=== PATIENT | male | born 1980 | race Hispanic/Latino ===

== ENCOUNTER 2024-10-31 20:40 | Emergency (ER) | payer OTHER ==
[~2024-10-31] VITALS: Ht 172.7 cm; Wt 102.1 kg
[2024-10-31] MEDS: acetaMINOPHEN 500 MG TABLET PO ONE (21:00)
--- NOTE | 2024-10-31 21:02 | ERN ---
General Chief Complaint: Hypertension Stated Complaint: HTN, HEADACHE Time Seen by MD: 20:43 Source: patient, family History of Present Illness Initial Comments Patient is a 44-year-old male coming in to be evaluated for headache. Per patient he has been under lot of stress notices his blood pressure goes up in the evenings. He states that before he goes to lay down she checked his blood pressure notices it high. He states that he was evaluated by his primary care physician was advised a CT of the head due to his abnormal presentation. He states that during the evaluation by primary care physician was very anxious. Allergies: Coded Allergies: No Known Allergies (Unverified Allergy, Unknown, 10/31/24) Past Medical History Past Medical History: Hypertension Past Surgical History: None ROS Dictation CONSTITUTIONAL: No chills, no fever, no weakness, no diaphoresis, no malaise. HEAD/FACE: No signs of trauma. EENT: No eye pain, no blurred vision, no tearing, no double vision, no ear pain, no ear discharge, no nose pain, no nasal congestion, no throat pain, no throat swelling, no mouth pain. RESPIRATORY: No cough, no orthopnea, no SOB, no stridor, no wheezing. CARDIOVASCULAR: No chest pain, no edema, no palpitations, no syncope. GASTROINTESTINAL/ABDOMINAL: No abdominal pain, no constipation, no diarrhea, no nausea, no vomiting. GENITOURINARY: No abnormal discharge, no dysuria, no frequent urination, no hematuria. No complaints of pain in the genitals. MUSCULOSKELETAL: No back pain, no gout, no joint pain, no joint swelling, no muscle pain, no muscle stiffness, no neck pain. INTEGUMENTARY: No change in color, no change in hair/nails, no dryness, no lesion, no lumps, no rash. NEUROLOGICAL/PSYCH: No anxiety, not depressed, no emotional problem, no heada eduardo, no numbness, no pre-existing deficit, no history of seizures, no tremors, no weakness. HEMATOLOGIC/LYMPHATIC: Not anemic, no history of blood clots, no apparent bleeding, no bruising, glands not swollen. All Systems Negative, Except as Noted. Physical Exam Physical Exam Dictation VITAL SIGNS: Reviewed. GENERAL APPEARANCE: Alert, oriented x3, no acute distress, obese. HEAD AND FACE: Non-traumatic. EYES: PERRL, pink conjunctivas, eyelid no trauma, anterior chamber clear. EARS: Pinnas intact and no signs of trauma or erythema. Ear canals clear and no discharge. TMs no erythema. NOSE: No discharge, no bleeding. OROPHARYNX: Mouth normal, teeth no caries, tongue pink. Pharynx clear, no erythema. Tonsils no exudates, no abscesses noted. Mucous membrane moist. NECK: Supple, non-tender, no thyromegaly, no masses, no JVD, no bruits. BREAST: Deferred. CHEST: No tenderness, no crepitus, no paradoxical movement, no retractions. LUNGS: Clear, well-ventilated, symmetric, no rales, no wheezing, no rhonchi, no stridor, good breath sounds bilaterally. HEART: Regular rate, regular rhythm, no murmur, no gallops. VASCULAR: No peripheral edema. ABDOMEN: Soft, positive bowel sounds, nondistended, no guarding, nontender, no rebound, no masses no hepatomegaly, no splenomegaly, no Ramos's sign, no hernias. RECTAL: Deferred. GENITAL: Deferred. NEUROLOGICAL: Normal speech, gross motor function intact, gross sensory function intact. MUSCULOSKELETAL: Neck nontender, full range of motion, back nontender, full range of motion. EXTREMITIES: Nontender, full range of motion. SKIN: Color pink, dry, no turgor, no rash, no lacerations, no abrasions, no contusions. LYMPHATICS: Deferred. Results Laboratory and Microbiology Lab and Micro Result Laboratory Tests Test 10/31/24 21:06 White Blood Count 6.1 K/uL (4.8-10.8) Red Blood Count 4.61 MIL/uL (4.50-6.20) Hemoglobin 14.0 g/dL (14.0-18.0) Hematocrit 41.9 % (42-54) L Mean Corpuscular Volume 90.9 fL (79-99) Mean Corpuscular Hemoglobin 30.4 pg (27.0-33.0) Mean Corpuscular Hemoglobin Concent 33.4 g/dL (32.0-36.0) Red Cell Distribution Width 12.2 % (11.0-15.5) Platelet Count 253 K/uL (130-400) Mean Platelet Volume 10.0 fL (7.5-10.5) Immature Granulocyte % (Auto) 0.3 % (0-1) Neutrophils (%) (Auto) 49.7 % (40.0-77.0) Lymphocytes (%) (Auto) 38.2 % (21.0-51.0) Monocytes (%) (Auto) 10.4 % (3.0-13.0) Eosinophils (%) (Auto) 1.1 % (0.0-8.0) Basophils (%) (Auto) 0.3 % (0.0-5.0) Neutrophils # (Auto) 3.0 K/uL (1.8-7.7) Lymphocytes # (Auto) 2.3 K/uL (1.0-4.8) Monocytes # (Auto) 0.6 K/uL (0.1-1.0) Eosinophils # (Auto) 0.07 K/uL (0.00-0.70) Basophils # (Auto) 0.02 K/uL (0.00-0.20) Absolute Immature Granulocyte (auto 0.02 K/uL (0-1) Nucleated Red Blood Cells 0.0 % (0.0-0.19) Prothrombin Time 10.7 SEC (9.6-11.6) Prothromb Time International Ratio 1.01 (0.85-1.15) Activated Partial Thromboplast Time 33.3 SEC (26.3-35.5) Sodium Level 141 mmol/L (136-145) Potassium Level 4.5 mmol/L (3.5-5.1) Chloride Level 104 mmol/L (101-111) Carbon Dioxide Level 30 mmol/L (21-32) Blood Urea Nitrogen 26 mg/dL (7-18) H Creatinine 0.9 mg/dL (0.5-1.3) Glomerular Filtration Rate Calc 107 mL/min (>90) Random Glucose 104 mg/dL (70-105) Total Calcium 9.3 mg/dL (8.5-10.1) Magnesium Level 2.10 mg/dL (1.80-2.40) Total Creatine Kinase 330 U/L (21-232) H Troponin I High Sensitivity 6 ng/L (4-75) B-Type Natriuretic Peptide < 5 pg/mL (0-100) Labs Reviewed?: Yes EKG/XRAY/US/CT/MRI EKG Comment 10/31/2024 time 8:48 p.m. Ventricular rate 72 RI [address] wave elevation or depression X-RAY Comment IMAGING REPORT Signed PATIENT: JIM BRUCE MR#: [id number] : 1980 SEX: M AGE: 44 LOCATION: [facility] ORDER 99 STATUS: REG ER REPORT#: [id number] SERVICE 57 REASON: htn ORDERING PHYSICIAN: JAMEY RAPP MD PROCEDURE: CXR1VW - CHEST 1VW CHEST 1VW CLINICAL HISTORY: htn COMPARISON: None TECHNIQUE: Single view of the chest was obtained. FINDINGS: Lungs are clear. The cardiac size and mediastinum are unremarkable. The bony structures are within normal limits. IMPRESSION: No acute cardiopulmonary process identified. DICTATED BY: CLARA HERNANDEZ DO DATE: 10/31/242116 ELECTRONICALLY SIGNED BY: CLARA HERNANDEZ DO DATE: 10/31/242118 MDM MDM: Differential diagnosis: Hypertension, anxiety, tension headache, stress Rationale: Tests considered and ordered secondary to shared decision making include: Previous outside records reviewed: Old ER visits. Risk of complication and/or morbidity or mortality of patient management: None Medications-Per medication reconciliation Need for hospitalization: Patient does not meet criteria for hospitalization. Need for emergency major/minor surgery: No There are no social concerns with this patient. Patient is a 44-year-old gentleman coming in complaining of headache and elevated blood pressure. He states that the headaches usually occur at night. He states after getting home from a stressful day he has these headaches checks his blood pressure and he is elevated. Laboratory workup with a normal limits. Patient was hydrated migraine cocktail was given states he feels much better and wants to go. ED Course Orders Procedure Category Date Status Time 12 Lead Ekg Tracing- EKG 10/31/24 Logged Technical 20:54 Cbc With Differential LAB 10/31/24 Complete 20:58 Prothrombin Time With LAB 10/31/24 Complete INR 20:58 B-Type Natriuretic LAB 10/31/24 Complete Peptide 20:58 Chest 1vw RAD 10/31/24 Resulted 20:58 Lactated Ringers PHA 10/31/24 Complete 1000ml (Lactated 21:00 Magnesium LAB 10/31/24 Complete 20:58 Creatine Kinase, Total LAB 10/31/24 Complete 20:58 Troponin I High LAB 10/31/24 Complete Sensitivity 20:58 Urinalysis Profile LAB 10/31/24 Logged 20:58 Partial LAB 10/31/24 Complete Thromboplastin Time 20:58 Basic Metabolic Panel LAB 10/31/24 Complete 20:58 Prochlorperazine PHA 10/31/24 Complete 10mg/2ml Inj 21:00 Diphenhydramine Hcl PHA 10/31/24 Complete (Benadryl Inj) 21:00 Acetaminophen 500mg PHA 10/31/24 Complete Tab (Tylenol 500mg T 21:00 Current Medications Medications (Trade) Dose Ordered Sig/Daisha Route PRN Reason Start Time Stop Time Status Last Admin Dose Admin Acetaminophen (TYLenol 500MG TAB) 500 mg ONCE ONCE PO 10/31/24 21:00 10/31/24 21:02 DC Diphenhydramine HCl (BENAdryl INJ) 25 mg ONCE ONCE IV 10/31/24 21:00 10/31/24 21:02 DC 10/31/24 21:52 Lactated Ringer's 1,000 ml @ 0 mls/hr ONCE ONCE IV 10/31/24 21:00 10/31/24 21:02 DC 10/31/24 21:52 Prochlorperazine Edisylate (Compazine 10mg/ 2ml Inj) 10 mg ONCE ONCE IV 10/31/24 21:00 10/31/24 21:02 DC 10/31/24 21:52 Vital Signs Date Time Temp Pulse Resp B/P (MAP) Pulse Ox O2 Delivery O2 Flow Rate FiO2 10/31/24 20:42 97.2 76 18 162/107 98 Room Air DX & DISP Disposition: Discharge Departure Impression: Primary Impression: Dehydration Additional Impressions: Tension headache, Stress disorder, acute Condition: Stable Additional Instructions: FOLLOW-UP WITH PRIMARY CARE PROVIDER IN 1 TO 2 DAYS. TAKE MEDICATIONS DIRECTED HERE IN THE EMERGENCY ROOM. OKAY TO CONTINUE HOME MEDICATIONS UNLESS OTHERWISE DISCUSSED DURING YOUR VISIT IN THE EMERGENCY ROOM TODAY. RETURN TO YOUR NEAREST EMERGENCY ROOM IF SYMPTOMS WORSEN OR IF THERE IS NO IMPROVEMENT. CALL 911 IF YOU NEED IMMEDIATE ASSISTANCE. TAKE TYLENOL [id number] NEEDED AND IF NO CONTRAINDICATIONS ARE PRESENT. INCREASE ORAL HYDRATION. A WOUND CULTURE OR URINE CULTURE WAS ORDERED HERE IN THE EMERGENCY ROOM DEPARTMENT PLEASE FOLLOW-UP WITH PRIMARY CARE PROVIDER AND ADVISE THEM TO GET REPEAT PORTS FROM OUR FACILITY. IF YOU HAD ANY FAVIO WRAP/SPLINTS THAT WERE APPLIED HERE, PLEASE DO NOT REMOVE THEM UNTIL YOU SEE YOUR PRIMARY CARE OR SPECIALTY. Referrals: Referrals: HERIBERTO LANDA MD (PCP) Time of Disposition: 22:26 JAMEY RAPP MD October 31, 2024 21:02
[2024-10-31 21:14] LABS: BASOPHILS # (AUTO) 0.02 K/uL (0.00-0.20); BASOPHILS % (AUTO) 0.3 % (0.0-5.0); EOSINOPHILS # (AUTO) 0.07 K/uL (0.00-0.70); EOSINOPHILS % (AUTO) 1.1 % (0.0-8.0); HEMATOCRIT 41.9 % (42-54); IMMATURE GRANULOCYTE ABSOLUTE 0.02 K/uL (0-1); LYMPHOCYTES # (AUTO) 2.3 K/uL (1.0-4.8); LYMPHOCYTES % (AUTO) 38.2 % (21.0-51.0); MEAN CORPUSCULAR HEMOGLOBIN 30.4 pg (27.0-33.0); MEAN CORPUSCULAR HGB CONC 33.4 g/dL (32.0-36.0); MEAN CORPUSCULAR VOLUME 90.9 fL (79-99); MONOCYTES # (AUTO) 0.6 K/uL (0.1-1.0); MONOCYTES % (AUTO) 10.4 % (3.0-13.0); NEUTROPHILS % (AUTO) 49.7 % (40.0-77.0); PLATELET COUNT (AUTO) 253 K/uL (130-400); RED BLOOD CELL COUNT(AUTO) 4.61 MIL/uL (4.50-6.20); RED CELL DISTRIBUTION WIDTH 12.2 % (11.0-15.5); WHITE BLOOD COUNT (AUTO) 6.1 K/uL (4.8-10.8)
--- NOTE | 2024-10-31 21:19 | HMCIMG ---
CHEST 1VW CLINICAL HISTORY: htn COMPARISON: None TECHNIQUE: Single view of the chest was obtained. FINDINGS: Lungs are clear. The cardiac size and mediastinum are unremarkable. The bony structures are within normal limits. IMPRESSION: No acute cardiopulmonary process identified.
[2024-10-31 21:25] LABS: CREATININE 0.9 mg/dL (0.5-1.3); POTASSIUM 4.5 mmol/L (3.5-5.1)
[2024-10-31 21:30] LABS: MAGNESIUM 2.1 mg/dL (1.80-2.40)
[2024-10-31 21:31] LABS: INR 1.01 (0.85-1.15); PROTHROMBIN TIME 10.7 SEC (9.6-11.6)
[2024-10-31 21:32] LABS: PARTIAL THROMBOPLASTIN TIME 33.3 SEC (26.3-35.5)
[2024-10-31 21:38] LABS: B-TYPE NATRIURETIC PEPTIDE < 5 pg/mL (0-100)
[2024-10-31] MEDS: PROCHLORPERAZINE 10MG/2ML INJ IV ONE (21:52)
[2024-10-31] MEDS: DiphenhydrAMINE HCL 50 MG/ML VIAL IV ONE (21:52)
[2024-10-31] MEDS: LACTATED RINGERS 1000ML 1,000 ML IV ONE (21:52)
[2024-10-31 23:08] VITALS: BP 152/90; PULSE 74; RESP 16; TEMP 97.4; O2SAT 100
--- NOTE | 2024-11-01 06:34 | EKG ---
[facility] Test Date: 2024-10-31 Test Time: 20:48:13 Pat Name: JIM BRUCE Department: ED Room: Gender: Child Support Specialist: [facility] : 1980 Requested By: JAMEY RAPP Order Number: [id number] Reading MD: Yunior Brown Measurements Intervals [place] Rate: 72 P: 51 VT: 157 QRS: -60 QRSD: 103 T: -24 QT: 378 QTc: 413 Interpretive Statements Sinus rhythm Left anterior fascicular block No previous ECG available for comparison Electronically Signed On 11-01-2024 17:33:04 CDT by Yunior Brown Please click the below link to view image of tracing.
== END 2024-10-31 23:10 | disposition home or self-care (01) ==
LOC: EDH 20:40
DX: E86.0 Dehydration (principal); G44.209 Tension-type headache, unspecified, not intractable; F43.0 Acute stress reaction; I10 Essential (primary) hypertension
CPT/HCPCS: 99285; 96374; 71045; 96361; 96375; 82550; 83735; 84484; 80048; 83880; 85025; 85610; 85730; 36415; 93005; J7120; J1200; J0780; 99284